=== PATIENT | female | born 1990 | race Caucasian/White ===

== ENCOUNTER 2017-10-24 11:09 | Emergency (ER) | payer SELFPAY ==
[2017-10-24 11:57] LABS: URINE HCG POC HCG NEGATIVE (Negative)
[2017-10-24 12:04] LABS: BILIRUBIN,URINE NEGATIVE (NEG); CLARITY,URINE CLEAR; COLOR,URINE YELLOW; GLUCOSE,URINE NEGATIVE (NEG); NITRITE,URINE NEGATIVE (NEG); PROTEIN,URINE NEGATIVE (NEG-TRACE); UROBILINOGEN,URINE 0.2 mg/dL (0.2 mg/dL)
[2017-10-24] MEDS: ALPRAZolam 0.5 MG TABLET PO (12:05)
[2017-10-24 12:16] LABS: SQUAMOUS EPITHELIAL CELL,UR FEW /LPF
[2017-10-24 12:17] LABS: BACTERIA,URINE FEW /HPF (0-FEW); RBC,URINE OCC /HPF (0-2); WBC,URINE RARE /HPF (0-4)
== END 2017-10-24 12:44 | disposition home or self-care (01) ==
LOC: ER 12:44
DX: F41.9 Anxiety disorder, unspecified (principal); Z87.891 Personal history of nicotine dependence
CPT/HCPCS: 81001; 81025; 99284